=== PATIENT | female | born 1985 | race Caucasian/White ===

== ENCOUNTER → 2018-06-29 | Outpatient (CLI) | payer OTHER | LOC: CARD 08:50 | PROVIDERS: ATTEND Internal Medicine Cardiovascular Disease | DX: R00.2 Palpitations (principal) | CPT/HCPCS: 93225; 93226 ==

== ENCOUNTER 2018-07-24 09:07 | Outpatient (RCR) | payer OTHER | END 2018-10-22 | disposition home or self-care (01) | LOC: CARD 09:07 | PROVIDERS: ATTEND Nurse Practitioner Family | DX: R00.2 Palpitations (principal) ==

== ENCOUNTER → 2018-08-17 | Outpatient (CLI) | payer OTHER | LOC: CARD 11:43 | PROVIDERS: ATTEND Nurse Practitioner Family | DX: R00.2 Palpitations (principal); I49.3 Ventricular premature depolarization; R07.89 Other chest pain; E66.9 Obesity, unspecified | CPT/HCPCS: 93351 ==

== ENCOUNTER → 2019-03-31 | Outpatient (CLI) | payer OTHER | LOC: CARD 08:24 | PROVIDERS: ATTEND Internal Medicine Cardiovascular Disease | DX: I49.3 Ventricular premature depolarization (principal) | CPT/HCPCS: 93225; 93226 ==